=== PATIENT | female | born 1980 | race African-American/Black ===

== ENCOUNTER 2017-03-25 21:11 | Emergency (ER) | payer OTHER ==
[~2017-03-25 21:11] MED LIST: ACETAMINOPHEN PO; ATARAX PO; AUGMENTIN PO; BACTRIM DS TABL1 TA1 PO; BACTRIM DS TABL1 TAB PO; BENTYL10 MG PO; BP MED; DARVOCET-N 1001 TAB PO; FLAGYL PO; IBUPROFEN PO; KEFLEX PO; KEFLEX500 MG PO; KETOPROFEN PO; LISINOPRIL PO; LORTAB 7.5-5001 TAB; MAXZIDE 75/50 T1 TAB PO; MEDROL PO; NORVASC PO; ORUDIS75 M1 PO; PERMETHRIN60 GM TP; PHENERGAN12.5 MG PO; TYLOX 5/500 CAP1 CAP PO; ZESTRIL10 MG PO; ZITHROMAX PO
== END 2017-03-25 21:50 | disposition home or self-care (01) ==
LOC: CFTX 21:11
DX: J02.0 Streptococcal pharyngitis (principal); I10 Essential (primary) hypertension; F17.210 Nicotine dependence, cigarettes, uncomplicated
CPT/HCPCS: 87880; 96372; 99283; J0561